=== PATIENT | male | born 1980 | race Caucasian/White ===

== ENCOUNTER 2024-11-11 10:01 | Emergency (ER) | payer BC, SELFPAY ==
[2024-11-11 10:05] VITALS: BP 148/88
--- NOTE | 2024-11-11 11:08 | ED.GENMED ---
History of Present Illness
General
Chief Complaint: Nasal Problem
Source: patient
Exam Limitations: none
Time Seen by Provider: 11/11/24 10:57
Nursing documentation reviewed up to this point in time: agreed with
History of Present Illness
History of Present Illness:
Patient is a 44 male who presents to the ER complaining of right sided nasal congestion. He reports he started 18 days ago with a cold and has gradually had increasing worsening congestion. He saw ENT, Dr. Alexander this morning who ordered a CAT
scan prior to getting surgery. He Reports ENT does feel that this is a polyp and will require surgery. He however was told that he would not be able to get the CAT scan done for the next 2 weeks. He reports he complains of extreme nasal
congestion and is not able to breathe from the right side of his nose. He denies any fevers, denies facial pain.
Past History
Past History
ED Past Medical History: None
ED Past Surgical History: None
Social History
Tobacco: Non-smoker
Review of Systems
Review of Systems
Allergies reviewed?: Yes
All Other Systems: ROS reviewed and negative except as documented in HPI and ROS
Constitutional: Reports no symptoms; Denies fever, fatigue or chills
EENT: Reports other (right sided nares congestion )
Respiratory: Reports no symptoms
Cardiac: Reports no symptoms
ABD/GI: Reports no symptoms
Musculoskeletal: Reports no symptoms
Skin: Reports no symptoms
Neurological: Reports no symptoms
Psychiatric: Reports no symptoms
Phy Exam
General Physical Exam
General Presentation: no apparent distress
General age: appears stated age
General Skin: warm and dry
General Habitus: normal
General Mental: alert
General Hydration: appears well hydrated
ENT Exam
ENT Exam: other (right sided nares with obvious swelling + yellowish drainage visible in nares ; no bony facial tenderness/ no sinus tenderness )
Eye Exam
Eye Exam: PERRL and EOMI
Eye Exam General: PERRL: bilateral and EOM intact: bilateral
Pupil Exam: Bilateral: round and reactive
Neurological Exam
Neurological Exam: alert and oriented x3
Musculoskeletal Exam
Musculoskeletal Exam: full ROM
Course
Orders/Labs/Results
Orders:
Orders
11/11/24 11:13
CT Sinuses W/o Iv Contrast Urgent
Comment:
Reason For Exam: right nares congestion/swelling
Vital Signs
Initial and Last Documented VS:
Initial Vital Signs
Temp Pulse Resp BP Pulse Ox
97.7 F 65 18 148/88 98
11/11/24 10:05 11/11/24 10:05 11/11/24 10:05 11/11/24 10:05 11/11/24 10:05
Last Documented Vital Signs
Temp Pulse Resp BP Pulse Ox
97.7 F 65 18 148/88 98
11/11/24 10:05 11/11/24 10:05 11/11/24 10:05 11/11/24 10:05 11/11/24 10:05
MDM/Problems Addressed
MDM/Problems Addressed:
Patient is a 44-year-old male who has had congestion from his right nares as documented for the past several weeks. He saw ENT today who recommended steroids and wanted an outpatient CAT scan for possible surgery to remove possible polyps. He came
to the ER today because he was unable to get a CAT scan scheduled. CAT scan was done and does show sinusitis.
Patient is afebrile in no acute distress. I did discuss results with ENT Dr. Ramos who does recommend adding Augmentin and he will see patient as follow-up in the office. He does recommend the patient start steroids and I did review this with
patient. Patient was given steroid prescription prior to arrival by Dr. Alexander.
*Radiology
Radiology exam reviewed: radiology read reviewed
*Critical Care Note
Total Time (30-74mins, 75-104mins- exclusive of procedures): Not Applicable
Patient Management
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
ED Attending Note
-
Portions of this chart may have been created with voice recognition software.� Occasional wrong word or��sound alike� substitutions may have occurred due to the inherent limitations of voice recognition software.
Discharge Plan
Departure
Patient Disposition: Home (Routine Discharge)
Date of Disposition: 11/11/24
Time of Disposition: 14:22
Patient with high blood pressure during this ER visit?: Yes
Condition: Fair
Covid-19: Not Applicable
Discharge Problem:
Sinusitis
Instructions: Sinusitis in adults - ED discharge instructions, BLOOD PRESSURE
Prescriptions:
New
amoxicillin-pot clavulanate 875-125 mg tablet
1 tab PO BID Qty: 20 0RF
No Action
hydrocodone-acetaminophen 1 TABLET tablet
1 tab PO Q4HPRN PRN (Reason: Pain) Qty: 10 0RF
tamsulosin [Flomax] 0.4 MG capsule
0.4 mg PO DAILY Qty: 14 0RF
ibuprofen 600 MG tablet
600 mg PO Q6 Qty: 20 0RF
Referrals:
Pete Alexander MD [Active] -
NONE,* [Family Provider] -
Activity Restrictions/Additional Instructions:
As discussed you are given the first dose of Augmentin here and a prescription was sent to your pharmacy take as directed. Also as discussed please start the steroids that you were given by clearing supervisor prior to arrival.
Follow-up with ENT for further scheduling and follow-up. Return if any worsening of symptoms
Interventions
Interventions:
ED-EENT Assessment Last Done: 11/11/24 11:18
Discharge Date and Time
Print Language: HUNGARIAN
[2024-11-11 11:18] VITALS: BMI 28.6
[2024-11-11] MEDS: AUGMENTIN 875 MG/125 MG 1 TABLET PO (14:29)
== END 2024-11-11 14:36 | disposition home or self-care (01) ==
LOC: EMR 10:01
PROVIDERS: EMERGENCY PHYSICIAN Emergency Medicine
DX: J01.00 Acute maxillary sinusitis, unspecified (principal); J01.30 Acute sphenoidal sinusitis, unspecified; R03.0 Elevated blood-pressure reading, without diagnosis of hypertension
CPT/HCPCS: 99284; 70486